=== PATIENT | female | born 2000 | race Two or more races ===

== ENCOUNTER 2025-09-04 20:36 | Emergency (ER) | payer OTHER ==
[~2025-09-04] VITALS: Ht 157.5 cm; Wt 68.0 kg
[2025-09-04] MEDS ORDERED: PRENATAL + DHA1 EAC1 (21:34)
[2025-09-04] MEDS ORDERED: CEFTRIAXONE SODIUM 1,000 MG VIAL IV STA (22:24)
[2025-09-04] MEDS ORDERED: ACETAMINOPHEN 500 MG GEL..CAP PO STA (22:25)
[2025-09-04] MEDS ORDERED: ACETAMINOPHEN 500 MG GEL..CAP PO ONE (22:30)
[2025-09-04] MEDS ORDERED: CEFTRIAXONE SODIUM 1,000 MG VIAL ONE (22:30)
[2025-09-04 22:59] LABS: BASO % 0.3 % (0.1-1.2); EOS # 0.08 (0.04-0.54); EOS % 0.8 % (0.7-7.0); LYMPH # 1.34 (1.18-3.74); LYMPH % 13.5 % (19.3-53.1); MEAN PLATELET VOLUME 10.40 fl (9.4-12.4); MONO # 1.48 (0.24-0.82); NEUT # 6.94 (1.56-6.13); NEUT % 70.2 % (34.0-71.1); RED CELL DISTRIBUTION WIDTH 17.1 % (11.6-14.4)
[2025-09-04 23:24] LABS: MONO % 15.0 % (4.7-12.5)
[2025-09-04 23:39] LABS: COVID-19 AG NEGATIVE (NEGATIVE)
[2025-09-05] MEDS ORDERED: ZYRTEC10 M3 PO (02:45)
== END 2025-09-05 03:48 ==
LOC: ER 20:37
PROVIDERS: General Practice
DX: B34.9 Viral infection, unspecified (principal); J03.80 Acute tonsillitis due to other specified organisms; J06.9 Acute upper respiratory infection, unspecified; Z20.822 Contact with and (suspected) exposure to COVID-19